=== PATIENT | male | born 1975 ===

== ENCOUNTER 2023-12-27 14:24 | Emergency (ER) | payer MEDICARE, SELFPAY ==
--- NOTE | ~2023-12-27 | CT_ITS ---
EXAMINATION: CT HEAD WITHOUT CONTRAST CLINICAL INFORMATION: Altered mental status. Headache. COMPARISON: None available. TECHNIQUE: Contiguous axial imaging was performed from the skull base to vertex without intravenous administration of contrast. This CT examination was performed using dose optimization techniques as appropriate, variously including the following: *Automated exposure control *Adjustment of mA and/or kV according to patient size (this includes techniques or standardized protocols for targeted exams where dose is matched to indication/reason for exam; i.e. extremities or head) *Use of iterative reconstruction technique DLP: 713 mGy-cm FINDINGS: The lateral, third and fourth ventricles are normally outlined. The cortical sulci and basal cisterns are normally outlined as well. There is no acute territorial defect, hemorrhage or midline shift. The extra-axial spaces are unremarkable. Calvarium/scalp: Intact. Maxillofacial sinuses and mastoids: Clear as visualized. CT/CT head/brain wo IV con IMPRESSION: No acute intracranial pathology.
--- NOTE | 2023-12-27 14:28 | ED_ITS ---
HPI - Psych General Chief Complaint: Psychiatric Symptoms Stated Complaint: seeing things talking to self crisis Time Seen by Provider: 12/27/23 15:36 Source: patient Mode of arrival: ambulatory Limitations: no limitations History of Present Illness ED Provider: TERESA ALAMO PA-C HPI Narrative: 48-year-old male with past medical history significant for developmental delay presents to the ED today with his cousin for evaluation of acute change in mental status. All information obtained per cousin. She reports that Sunday night, patient stopped taking p.o. intake. Around 3:00 a.m. the following morning he began to yell out his bedroom window stating that he had to leave and that people were outside waiting for him. There was no one outside. Was seen whispering to himself. He attempted to climb out the window. A day later he was found wandering the neighborhood lost. PD was called. Over the last few days he has not been very verbal per family. He has not made any statements of SI/HI. No known drug use. No history of similar. No personal psych history. Cousin reports familial psych history with unknown diagnosis. Related Data Previous Rx's ?Medication ?Instructions ?Recorded olanzapine 2.5 mg tablet (Zyprexa) 2.5 mg PO BEDTIME 30 days #30 tabs 12/31/23 olanzapine 2.5 mg tablet (Zyprexa) 2.5 mg PO Q6H PRN Hallucinations, 12/31/23 agitation 30 days #30 tabs Allergies Allergy/AdvReac Type Severity Reaction Status Date / Time No Known Allergies Allergy Verified 12/27/23 14:32 Review of Systems 2 Review of Systems: Constitutional: No fever, chills, fatigue, night sweats, weight changes ENT/Mouth: No ear pain, hearing loss, nasal congestion, sinus pain, rhinorrhea, sore throat Eyes: No eye pain, swelling, redness, vision changes, discharge Cardio: No chest pain, palpitations, BYNUM, orthopnea, peripheral edema Pulm: No SOB, cough, sputum, wheezing, dyspnea, hemoptysis GI: No nausea, vomiting, hematemesis, abdominal pain, diarrhea, constipation, hematochezia, melena : No irregular bleeding, dysuria, frequency, urgency, hesitancy, hematuria, flank pain, urinary flow changes, urinary incontinence or retention MSK: No back pain, neck pain, joint pain, myalgias Skin: No lesions, rashes Neuro: No weakness, numbness, paresthesias, LOC, dizziness, headache Psych: No anxiety/panic, depression, SI/HI, +auditory hallucinations, +visual hallucinations All other systems reviewed and are negative. COUNTS INCLUDE 234 BEDS AT THE [facility] Past Medical History Attestation statement: The following information was validated with the patient. Source: old records reviewed and nursing notes reviewed Social History Social History Smoked in Last 30 Days: No Use of substances other than those prescribed or required for medical reasons: No Advance Directives: No Advance Directives Information Provided: No Physical Exam 2 Vital Signs: Vital Signs: Last Vital Signs Temp 97.5 F 12/31/23 05:54 Pulse 76 12/31/23 05:54 Resp 16 12/31/23 05:54 BP 101/73 12/31/23 05:54 Pulse Ox 97 12/31/23 05:54 O2 Del Method Room Air 12/31/23 05:54 BMI result Body Mass Index 20.9 vital signs stable Const: General: cooperative, healthy appearing, comfortable and no acute distress HEENT: Head: Yes normal to inspection, Yes No palpable skull fracture present, Yes normocephalic and Yes atraumatic Eyes: Pupils: Equal, round and reactive pupils present Resp: Effort & Inspection: normal respiratory effort and able to speak in complete sentences Auscultation: clear to auscultation bilaterally Cardio: Rate: regular rate Rhythm: regular rhythm : General: Yes no CVA tenderness Back/Spine/Pelvis: Other: No midline spinous tenderness or step off deformity. No paraspinal muscle tenderness. Back: no CVA tenderness Skin: General skin exam: no rashes or lesions noted Neuro: General: gait normal, tone normal, moves all extremities and no focal motor deficits Cranial nerves: Yes CN's II-XII intact bilaterally and Yes Equal, round and reactive pupils present Gait exam (Neuro): Normal gait present Motor exam (neuro): 5/5 motor strength present throughout Psych: Appearance: grossly normal Attitude: Avoids eye contact (attititude/behavior) and Refuses to answer (attititude/behavior) Course Course Course Narrative: This is a Rapid Medical Examination (RME) performed by Kourtney Alamo PA-C in triage. Full HPI, ROS, assessment and treatment plan per primary provider in the Main ED. 48 yo male hx of developmental delay here w/ cousin for eval of acute change in mental status. reports sunday night patient stopped taking PO intake. around 0300 the following morning, began yelling out the window stating that he had to leave, that people were waiting for him outside. there was no one there. he tried climbing out the window. found wandering the neighborhood lost. PD was called. over the last few days has not been very verbal per family. has not made statements of SI/HI. no known drug use. no history of similar. no personal psych history. familial psych hx. + withdrawn. not answering questions. Plan: labs, UA/UDS, ct head Reevaluation(s) Reevaluation #1: 1750 -- Informed by RN patient unwilling to let staff get close to him in order to obtain blood work or CT scan. Continues to whisper to himself. Cousin and sister attempted to discuss need for work up with patient however still refusing. Will trial p.o. Zyprexa as labs/ imaging needed for medical clearance. 1849 -- patient's proj engineer now at bedside. Patient agreeable to p.o. Zyprexa. Will attempt to obtain blood work and CT scan after medication administration. 2046-- CBC without leukocytosis or left shift. No anemia. H&H stable. Chemistry without acute electrolyte abnormality requiring intervention. No ANTONIA. Normal liver function. Urine toxicology negative. Ethanol undetectable. HIV and syphilis pending. CT head/brain pending. > patient stable at the end of my shift. Sign-out given to Ramona COLLINS pending CT head/brain and care team consultation. Patient placed in physician observation at this time. Time: 00:09 Reevaluation #2: Received patient in sign out from ROB Driscoll. Patient initially refusing CT head, however, eventually agreed. CARE team requesting psych consult as patient has never been here, no records from [facility]. Time: 01:00 Reevaluation #3: No acute intracranial pathology on CT head. Patient pleased on physician observation at this time pending psych consult. Additional Reevaluation(s): Physician observation continued. Uneventful night. Vital signs stable. No complaints from nursing overnight. Med reconciliation reviewed and done. Pending disposition. Will continue to monitor. Pending psych consult 12/28/2023 at 21:40 hoursDr. Vincenzo Brennan note: Physician observation continued Patient was initially accepted at [facility] however [facility] canceled the acceptance since they were not told about the patient's developmental delay. Patient has been re-evaluated the care team and the patient is now a bed search againPatient will remain in the emergency department Behavioral Health Unit until disposition can be determined or until patient's symptoms improve over time. 12/29/23 708am. JAMESON Physician observation continued. VS stable, no acute events last night. continued bed search. I do no not see a psych consult yet in the chart. Bed search still underway. 12/30/23 724am JAMESON Physician observation continued. VS stable, no acute events overnight inpatient bed search S12. psych consult yesterday zyprexa 2.5mg dosing and PRN zyprexa. 12/31/2023 at 07:34 hours,Dr. Vincenzo Rojas'arvind note: Physician observation continued Patient was psychiatric consult on 12/29/2023 and was started on Zyprexa 2.5 mg at night and 2.5 mg b.i.d. p.r.n. 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 There were no reported incidents on the patient by the overnight nursing staff. The patient is in in-patient bed search.Patient will remain in the emergency department Behavioral Health Unit until disposition can be determined or until patient's symptoms improve over time. 12/31/2023 at 17:12 hours,Dr. Vincenzo Rojas'arvind note: End physician observation on 12/31/2023 at 17:12 hours 48 yo male hx of developmental delay who presents emergency department acute change in mental status. Patient did have a psychiatric consult and was started on Zyprexa. Patient was evaluated by the care team and it was felt that he did not require hospitalization and can be discharged home. Initially care team refer the patient to [facility] for follow-up however they do not accept his insurance and care team will try to refer the patient to [facility] for follow-up care. I prescribed Zyprexa 2.5 mg at night and Zyprexa 2.5 mg every 6 hours as needed for agitation. Observation care revealed the the patient does not meet medical necessity for hospitalization. Exam at time of disposition revealed the patient was awake, alert , oriented to person place, was not in any distress. ? Final disposition discussed with the patient and the patient's family who verbalized understanding and agreement. Patient started observation time on 12/27/2023 at 20:48 hours Patient completed observation care on 12/31/2023 at 17:12 hours Total time spent in observation care was 104 hours and 24 minutes https://www.calculator.net/quna-ciddumsu-iahpgmyewp.html Medications Administered Generic Name Dose Route Start Last Admin Trade Name Freq PRN Reason Stop Dose Admin Olanzapine 2.5 mg 12/29/23 21:00 12/30/23 20:17 Olanzapine 2.5 Mg Tablet PO 2.5 mg BEDTIME SHAHANA Administration Discontinued Medications Generic Name Dose Route Start Last Admin Trade Name Freq PRN Reason Stop Dose Admin Olanzapine 5 mg 12/27/23 18:00 12/27/23 18:41 Olanzapine 5 Mg Tablet PO 12/27/23 18:01 5 mg ONCE ONE Administration Olanzapine 5 mg 12/27/23 21:15 12/27/23 21:25 Olanzapine 5 Mg Tablet PO 12/27/23 21:16 5 mg ONCE ONE Administration Olanzapine 5 mg 12/29/23 09:45 12/29/23 09:54 Olanzapine 5 Mg Tablet PO 5 mg BID SHAHANA Administration Medical Decision Making Medical Decision Making [facility] Narrative: 48-year-old male with past medical history significant for developmental delay presents to the ED today with his cousin for evaluation of acute change in mental status. Vital signs stable. Afebrile. Patient withdrawn. Making eye contact however not willing to answer questions. PERRLA. RRR. Lungs CTA b/l. CN intact. Differential diagnosis includes new onset psychiatric illness, schizophrenia, bipolar disorder, polysubstance use. UA ordered to rule out urinary tract infection. Imaging ordered to rule out intracranial pathology. Plan for labs, UA/UDS, CT head/brain. Differential Diagnosis Differential Diagnoses: The differential diagnosis associated with the presentation includes As above Admission/Observation Consideration of admission/observation: Escalation of care including admission/observation considered Lab Data [facility] Lab Attestation statement: I reviewed the patient's lab results. As above 12/27/23 19:24 12/27/23 19:24 Labs: Lab Results 12/27/23 12/27/23 Range/Units 14:59 19:24 WBC 9.3 (4.8-10.8) X10*3/uL RBC 4.65 (4.60-5.80) X10*6/uL Hgb 14.9 (14.0-18.0) g/dl Hct 42.3 (42.0-52.0) % MCV 91.0 (80.0-98.0) fL MCH 32.0 (27.0-33.0) pg MCHC 35.2 (31.0-36.0) g/dl RDW 13.3 (11.0-16.0) % Plt Count 228 (160-400) X10*3/uL MPV 9.9 (9.4-12.4) fL Immature Gran % (Auto) 0.3 (0.0-0.4) % Neut % (Auto) 69.1 (45-73) % Lymph % (Auto) 22.0 (20-40) % [place] % (Auto) 7.5 (2-11) % Eos % (Auto) 0.5 (0-4) % Baso % (Auto) 0.6 (0-2) % Lymph # (Auto) 2.1 (1.2-4.9) X10*3/uL [place] # (Auto) 0.7 (0.1-1.2) X10*3/uL Eos # (Auto) 0.1 (0.0-0.4) X10*3/uL Baso # (Auto) 0.1 (0.0-0.2) X10*3/uL Abs Immat Gran (auto) 0.03 (0.00-0.03) X10*3/uL Absolute Neuts (auto) 6.4 (2.0-8.3) x10*3/uL Absolute Nucleated RBC 0.000 (0.0-0.012) X10*3/uL Nucleated RBC % (auto) 0.0 (0.0-0.2) /100WBC Sodium 143 (135-145) mmol/L Potassium 4.0 (3.3-5.1) mmol/L Chloride 107 (96-108) mmol/L Carbon Dioxide 27 (22-29) mmol/L Anion Gap 13 (12-20) BUN 15 (9-16) mg/dL Creatinine 0.95 (0.5-1.4) mg/dL Estim Creat Clear Calc 84.9 Estimated GFR > 60 Random Glucose 131 H (60-115) mg/dL Calcium 9.8 (8.4-10.2) mg/dL Magnesium 2.3 (1.6-2.6) mg/dL Total Bilirubin 0.3 (0.0-1.0) mg/dL AST 13 (5-37) U/L ALT 19 (0-40) U/L Alkaline Phosphatase 74 (39-117) U/L Total Protein 7.9 (6.5-8.0) g/dL Albumin 4.3 (3.5-5.0) g/dL TSH 0.88 (0.32-4.0) uIU/mL Urine Color Yellow Urine Appearance Cloudy Urine pH 7.5 (5.0-9.0) Ur Specific [place] 1.025 (1.005-1.025) Urine Protein 30 (1+) H (Neg-Trace) mg/dL Urine Glucose (UA) Negative (Negative) mg/dL Urine Ketones Negative (Negative) mg/dL Urine Blood Negative (Negative) Urine Nitrite Negative (Negative) Ur Leukocyte Esterase Negative (Negative) Urine RBC 0-2 (0-2) /HPF Urine WBC 0-5 (0-5) /HPF Ur Squamous Epith Cells 3-5 (0-2) /HPF Urine Bacteria None Seen (None Seen) Hyaline Casts 0-2 (0-2) /LPF Urine Opiates Screen Not Detected (Not Detect) Ur Buprenorphine Scrn Not Detected (Not Detect) ng/mL Ur Oxycodone Screen Not Detected (Not Detect) ng/mL Urine Methadone Screen Not Detected (Not Detect) ng/mL Urine Fentanyl Screen Not Detected (Not Detect) Ur Barbiturates Screen Not Detected (Not Detect) Ur Phencyclidine Scrn Not Detected (Not Detect) Ur Amphetamines Screen Not Detected (Not Detect) U Benzodiazepines Scrn Not Detected (Not Detect) Urine Cocaine Screen Not Detected (Not Detect) U Marijuana (THC) Screen Not Detected (Not Detect) Ethyl Alcohol < 10 mg/dL T.pallidum Ab (EIA) Nonreactive (Nonreactive) HIV 1&2 Ab/P24 Ag 4thGn Nonreactive (Nonreactive) Critical Care Time Critical Care Time Critical Care Time: No Discharge Plan Discharge Clinical Impression: Hallucinations, visual Patient Disposition: Home, Self-Care Additional Instructions: Please follow the care team instructions You were seen by our psychiatrist and they want to start you on the following medications Zyprexa (olanzapine) 2.5 mg pills, at night Zyprexa (olanzapine) 2.5 mg every 6 hours as needed for agitation or hallucinations. Follow-up with your doctor in 2 days. Please return to the emergency department if your symptoms get worse or if you develop any symptoms that are concerning to you. Prescriptions: New olanzapine [Zyprexa] 2.5 mg tablet 2.5 mg PO Q6H PRN (Reason: Hallucinations, agitation) 30 Days Qty: 30 0RF olanzapine [Zyprexa] 2.5 mg tablet 2.5 mg PO BEDTIME 30 Days Qty: 30 0RF Interventions: Shannon-Suicide Risk Severity Scale Last Done: 12/31/23 17:04 Print Language: Hungarian
[2023-12-27 14:29] VITALS: BP 113/78; PULSE 86; RESP 16; TEMP 36.6; O2SAT 100; BMI 20.9
[2023-12-27 15:08] LABS: Appearance Urine Cloudy; Color Urine Yellow; Glucose Urine UA Negative (Negative); Leukocyte Esterase Urine Negative (Negative); Nitrite Urine Negative (Negative); PH 7.5 (5.0-9.0); Specific Gravity - Urine 1.025 (1.005-1.025); UMIC TRIGGER UACC YES; Urine Blood Negative (Negative); Urine Ketones Negative (Negative); Urine Protein 30 (1+) mg/dL (Neg-Trace)
[2023-12-27 15:11] LABS: Bacteria Urine None Seen (None Seen); Hyaline Casts Urine 0-2 /LPF (0-2); RBC Urine 0-2 /HPF (0-2); WBC Urine 0-5 /HPF (0-5)
[2023-12-27 15:24] LABS: Amphetamine Screen Urine Not Detected (Not Detect); Barbiturates, Urine Not Detected (Not Detect); Benzodiazepines Screen Urine Not Detected (Not Detect); Buprenorphine Scr Not Detected (Not Detect); Cannabinoid Screen Urine Not Detected (Not Detect); Cocaine Screen Urine Not Detected (Not Detect); Fentanyl, urine Not Detected (Not Detect); Methadone Screen, Urine Not Detected (Not Detect); Opiate Screen Urine Not Detected (Not Detect); Oxycodone Screen Urine Not Detected (Not Detect); Phencyclidine Screen Urine Not Detected (Not Detect)
--- OUTSIDE RECORDS SUMMARY | 2023-12-27 16:15 | XMS_ITS ---
Author Organization Unknown ALLERGIES AND ADVERSE REACTIONS No information ASSESSMENT No information CHIEF COMPLAINT No information MEDICATIONS No information OBJECTIVE DATA No information PHYSICAL EXAMINATION No information TREATMENT PLAN Planned Care Start Date Provider Encounter for Check-up [id number] PROBLEMS No information RESULTS No information REVIEW OF SYSTEMS No information SUBJECTIVE DATA No information VITAL SIGNS No information
--- NOTE | 2023-12-27 16:23 | PC.NURSE ---
Pt presents to ED via family. Family/ caregivers report since Sunday he has been nonverbal, not eating and not acting himself. Has mental delays per family, at baseline talks but has trouble communicating normally. Family reports he has been wandering, responding to external stimuli, not talking to family and not acting himself. Per family, pt does not use drugs/alcohol, no recent falls/ head hit, or recent illnesses. Denies pt ever making statements about SI/HI. Pt has no psych hx or meds per family.
--- NOTE | 2023-12-27 16:24 | MHC.EDTECH ---
at this time this tech attempted to draw the pt's blood for blood work and the pt refused.
--- NOTE | 2023-12-27 16:26 | PC.NURSE ---
Pt is alert, not responding to RN or family, noted to be responding to internal stimuli. Says one or two words, no sentences. Breathing even and unlabored, skin warm and dry. Pt refusing CT scan or labs at this time.
[2023-12-27 16:57] VITALS: BP 124/86; PULSE 94; RESP 20; TEMP 36.4; O2SAT 98
[2023-12-27] MEDS: OLANZapine 5 MG TABLET PO ×2 (18:41→21:25)
--- NOTE | 2023-12-27 18:42 | PC.NURSE ---
Caregiver at bedside, agrees that pt will need medication for blood work/ testing. Pt takes PO med per MAR with caregiver at bedside, able to talk to him. Will attempt soon for testing.
[2023-12-27 19:30] LABS: MANUAL DIFF FLAG NO
[2023-12-27 19:31] LABS: Basophils Absolute Auto 0.1 X10*3/uL (0.0-0.2); Basophils Percent Auto 0.6 % (0-2); Eosinophils Absolute Auto 0.1 X10*3/uL (0.0-0.4); Eosinophils Percent Auto 0.5 % (0-4); Hematocrit 42.3 % (42.0-52.0); Hemoglobin 14.9 g/dl (14.0-18.0); Imm Gran Abs Auto 0.03 X10*3/uL (0.00-0.03); Imm Gran Pct Auto 0.3 % (0.0-0.4); Lymphocytes Absolute Auto 2.1 X10*3/uL (1.2-4.9); Mean Corpuscular HGB Conc 35.2 g/dl (31.0-36.0); Mean Platelet Volume 9.9 fL (9.4-12.4); Monocytes Absolute Auto 0.7 X10*3/uL (0.1-1.2); Monocytes Percent Auto 7.5 % (2-11); Neutrophils Absolute Auto 6.4 x10*3/uL (2.0-8.3); Neutrophils Percent Auto 69.1 % (45-73); Platelet Count 228 X10*3/uL (160-400); Red Blood Count 4.65 X10*6/uL (4.60-5.80); Red Cell Distribution Width 13.3 % (11.0-16.0); White Blood Count 9.3 X10*3/uL (4.8-10.8)
[2023-12-27 19:50] LABS: Ethanol < 10 mg/dL
[2023-12-27 19:51] LABS: Alanine Aminotransferase 19 U/L (0-40); Albumin Level 4.3 g/dL (3.5-5.0); Alkaline Phosphatase 74 U/L (39-117); Anion Gap 13 (12-20); Aspartate Amino Transferase 13 U/L (5-37); Bilirubin Total 0.3 mg/dL (0.0-1.0); Blood Urea Nitrogen 15 mg/dL (9-16); Calcium 9.8 mg/dL (8.4-10.2); Carbon Dioxide 27 mmol/L (22-29); Chloride 107 mmol/L (96-108); Creatinine Clr Calc Pharmacy 84.9; Estimated Glomerular Filt Rate > 60; Glucose Random 131 mg/dL (60-115); Magnesium 2.3 mg/dL (1.6-2.6); Sodium 143 mmol/L (135-145); Total Protein 7.9 g/dL (6.5-8.0)
--- NOTE | 2023-12-27 21:15 | MHC.EDTECH ---
at this time the pt came out of his room and began testing doors, continues to say Dame selma miller . Both techarvind and RN attempted to redirect pt back to room and explain that he will receive his clothes tomorrow upon D/C. He continues to stand by the nurses station attempting to retrieve his personal belongings in order to leave.
[2023-12-27 23:03] LABS: Thyroid Stimulating Hormone 0.88 uIU/mL (0.32-4.0)
--- NOTE | 2023-12-28 | ECG_ITS ---
Test Reason : CHECKQTC Blood Pressure : / mmHG Vent. Rate : 084 BPM Atrial Rate : 084 BPM P-R Int : 106 ms QRS Dur : 082 ms QT Int : 334 ms P-R-T Axes : -11 148 147 degrees QTc Int : 394 ms Sinus rhythm with short PA Left posterior fascicular block Nonspecific ST and T wave abnormality Abnormal ECG No previous ECGs available Referred By: Elijah Islas Electronically Signed By:VIANNEY AREVALO MD
[2023-12-28 06:21] VITALS: BP 125/86; PULSE 101; RESP 19; TEMP 36.7; O2SAT 98
[2023-12-28 08:38] LABS: HIV AB/AG Nonreactive (Nonreactive); HIV Num 1 0.05 S/CO (0.00-0.99)
[2023-12-28 08:58] LABS: Syphilis Screen Nonreactive (Nonreactive)
[2023-12-28 14:00] VITALS: BP 99/66; PULSE 76; RESP 17; TEMP 37.1; O2SAT 96
--- NOTE | 2023-12-28 16:52 | MHC.CARE ---
T/W spoke with Admissions- [facility] however needs a Nursing Note / report from nurse with accepting info. Admissions is requesting this information be added to the pt's chart. Admissions is leaving at 5PM today so wanted to relay the message. T/W will let Nursing know.
--- NOTE | 2023-12-28 17:12 | MHC.CARE ---
Pt was accepted [facility] today 12/28/23 ETA [facility]. Pt has to arrive before 7pm because their accepting doc will be gone by the. The accepting provider is Dr. Maren Muir. Pod RN was notified of acceptance. CARE team was notified of acceptance. Pod RN will set up transport [facility]. The address [address] [place] [id number]. Nurse still has to conduct report for pt.
--- NOTE | 2023-12-28 19:09 | MHC.CARE ---
POD RN reports that [facility] cancelled transport for Pt during [id number] report as they were not told that Pt had a developmental disability.
--- NOTE | 2023-12-28 23:29 | PC.NURSE ---
resting queitly with eyes closed, resp with ease, will cont plan of care
[2023-12-29 06:17] VITALS: BP 110/67; PULSE 67; RESP 16; TEMP 37.1; O2SAT 97
[2023-12-29] MEDS: OLANZapine 5 MG TABLET PO (09:54)
--- NOTE | 2023-12-29 14:14 | P.CNPS_ITS ---
History of Present Illness Date of Service: t Chief Complaint: seeing things talking to self crisis Reason for Consult: Medication management HPI Narrative: The patient is a 48-year-old [place] male, Gabonese-speaking, with developmental disorders living with his family referred to the emergency room due to exacerbation of psychotic symptoms elicited by disorganized behavior, talking to himself on agitation. Apparently, the patient is under the care of his family and recently he had been more disorganized. The present consult was asked for medication management due to the psychotic symptoms. When I approached to the patient the patient has yes received an hour ago Zyprexa 5 mg and he was profoundly sedated. According to the crisis note and home meds, he has never received antipsychotics. I was unable to assess his full mental status exam due to the over-sedation. Past Psychiatric History: Unknown Medical Evaluation Reviewed: Yes Review of Systems Review of Systems Yes Unobtainable due to mental status PMFSH Family History: Unknown Social History: The patient is severely impaired, there guardianship papers from [place] he is taking care by his family. Substance History: No substance abuse history Trauma History: No trauma history Diagnostics Vital Signs (24Hr): Vital Signs - 24 hr 12/29/23 06:17 Temperature 98.7 F Pulse Rate 67 Respiratory Rate 16 Blood Pressure 110/67 Pulse Oximetry 97 Oxygen Delivery Method Room Air BMI result Body Mass Index 20.9 Labs 12/27/23 19:24 12/27/23 19:24 Labs: Laboratory Results - last 48 hr 12/27/23 12/27/23 14:59 19:24 WBC 9.3 RBC 4.65 Hgb 14.9 Hct 42.3 MCV 91.0 MCH 32.0 MCHC 35.2 RDW 13.3 Plt Count 228 MPV 9.9 Immature Gran % (Auto) 0.3 Neut % (Auto) 69.1 Lymph % (Auto) 22.0 [place] % (Auto) 7.5 Eos % (Auto) 0.5 Baso % (Auto) 0.6 Lymph # (Auto) 2.1 [place] # (Auto) 0.7 Eos # (Auto) 0.1 Baso # (Auto) 0.1 Abs Immat Gran (auto) 0.03 Absolute Neuts (auto) 6.4 Absolute Nucleated RBC 0.000 Nucleated RBC % (auto) 0.0 Sodium 143 Potassium 4.0 Chloride 107 Carbon Dioxide 27 Anion Gap 13 BUN 15 Creatinine 0.95 Estim Creat Clear Calc 84.9 Estimated GFR > 60 Random Glucose 131 H Calcium 9.8 Magnesium 2.3 Total Bilirubin 0.3 AST 13 ALT 19 Alkaline Phosphatase 74 Total Protein 7.9 Albumin 4.3 TSH 0.88 Urine Color Yellow Urine Appearance Cloudy Urine pH 7.5 Ur Specific [place] 1.025 Urine Protein 30 (1+) H Urine Glucose (UA) Negative Urine Ketones Negative Urine Blood Negative Urine Nitrite Negative Ur Leukocyte Esterase Negative Urine RBC 0-2 Urine WBC 0-5 Ur Squamous Epith Cells 3-5 Urine Bacteria None Seen Hyaline Casts 0-2 Urine Opiates Screen Not Detected Ur Buprenorphine Scrn Not Detected Ur Oxycodone Screen Not Detected Urine Methadone Screen Not Detected Urine Fentanyl Screen Not Detected Ur Barbiturates Screen Not Detected Ur Phencyclidine Scrn Not Detected Ur Amphetamines Screen Not Detected U Benzodiazepines Scrn Not Detected Urine Cocaine Screen Not Detected U Marijuana (THC) Screen Not Detected Ethyl Alcohol < 10 T.pallidum Ab (EIA) Nonreactive HIV 1&2 Ab/P24 Ag 4thGn Nonreactive Imaging Radiology Impressions: ITS Impressions Head CT 12/27/23 23:37 IMPRESSION: No acute intracranial pathology. Mental Status Exam Mental Status Exam Patient Appearance: Appropriate Patient Orientation: Person Level of Consciousness: Sedated Patient Behavior: Asleep Mood Description: Withdrawn Affect Description: Withdrawn Patient Cognition Impaired: Yes Ability to Follow Directions: Poor Speech Pattern: No Speech Hallucinations: None Delusions: Ideas of Reference Thought Process: Slowed Thinking Thought Content: positive for Thought Blocking Judgement: Poor Medications Medications Current Medications Olanzapine (Olanzapine 5 Mg Tablet) 5 mg PO BID SHAHANA Last Admin: 12/29/23 09:54 Dose: 5 mg Allergies Allergies Allergy/AdvReac Type Severity Reaction Status Date / Time No Known Allergies Allergy Verified 12/27/23 14:32 Assessment & Plan Assessment & Plan (1) Psychosis: Status: Acute Code(s): F29 - Unspecified psychosis not due to a substance or known physiological condition (2) Cognitive impairment: Status: Acute Code(s): R41.89 - Other symptoms and signs involving cognitive functions and awareness Plan The patient is an adult [place] male with a past history of cognitive impairment, taking care by his family who was brought to the facility for psychotic symptoms. Apparently the patient has never received antipsychotics and the present consult was asked to discuss medication management. At the moment of the assessment the patient was severely sedated, the patient is completing knife to antipsychotics and 5 mg of Zyprexa twice a day could be excessive at this point. Plan 1. Gather collateral information we need to find out medication trials in the past. 2. Discontinue Zyprexa 5 mg p.o. b.i.d.. 3. Zyprexa 2.5 p.o. q.6 hours p.r.n. hallucinations/psychosis. 4. Lower Zyprexa at night 2.5 mg p.o. q.h.s.. 5. Reassessment as demand Total time managing care of this patient today _30___ minutes. Informed Consent: does not understand
--- NOTE | 2023-12-29 15:19 | MHC.CARE ---
RAD team conducted an adult inpatient bedsearch for this individual. His referral was faxed to [facility], [facility], [facility], [facility] and [facility]. All other adult facilities had no open beds. The bed search it is now exhausted. Bed search will be continued tomorrow if deemed appropriate.
--- NOTE | 2023-12-29 15:49 | MHC.CARE ---
Pt seen by hospital psychiatry for consultation. Unable to engage due to over sedation. Psychiatry changed current medication orders to reduce the over sedating effects.
--- NOTE | 2023-12-29 16:04 | PC.NURSE ---
spoke w family via in-person chief technologist at length, family expressed concern that pt is decompensation and not participating in ADLs, and has not been showering or brushing teeth. family has been trying to bring food to pt d/t pt not eating sandwiches and eggs that are often served to pt and there has been inconsistencies w food allowed back to pt. advised that family bring store bought and packaged food to avoid confusion w staff. kitchen called to request that pt be brought rice, beans and chicken for meals if available d/t pt eating similar type meals when admitted. family also frustrated that pt is only allowed one visitor at a time today when they have had two visitors in the past - explain that visitors can be limited at nurse discretion d/t the needs of staff and other pts in area. family verbalized understanding of above.
--- NOTE | 2023-12-29 16:49 | MHC.EDTECH ---
Family member brought in food for patient from the caf, sandwich, chips, drinks.
--- NOTE | 2023-12-29 17:12 | PC.NURSE ---
Patient at a [employer] [facility] sandwich, Lays potato chips, and pineapple juice drink for dinner, provided by food purchased at [facility] by his [id number]. Items were in sealed containers. Pt is now taking a shower and brushing his teeth. Shampoo, toothbrush, and toothpaste provided by [facility]. Shampoo liquid placed in paper cup, per [facility] policy. Changed into [facility] attire without issue. Pt ambulates with steady gait. Linens also changed. Pt returned to bed while this RN was writing this note and is currently resting and watching TV. Unopened banana and unopened ritz cracker snack pack remains on patient's bedside table at this time. Care ongoing by this RN and ED rn psychiatric.
--- NOTE | 2023-12-29 19:30 | PC.NURSE ---
patient appears to remain at rest at present respirations are even and unlabored patient appears in no distress.
[2023-12-29] MEDS: OLANZapine 2.5 MG TABLET PO (19:46)
[2023-12-29 20:22] VITALS: BP 122/85; PULSE 95; RESP 18; TEMP 36.8; O2SAT 98
[2023-12-30 04:58] VITALS: BP 116/80; PULSE 77; RESP 16; TEMP 36.6; O2SAT 98
[2023-12-30 07:32] VITALS: RESP 16
--- NOTE | 2023-12-30 07:37 | PC.NURSE ---
Assumed care of patient at 0645, patient appears to be sleeping, no apparent distress noted. Continue plan of care for inpatient bedsearch
--- NOTE | 2023-12-30 09:55 | PC.NURSE ---
patient requiring some prompting but ate a few bites of breakfast, patient declined needing to use the bathroom
[2023-12-30 15:49] VITALS: RESP 16
[2023-12-30 15:56] VITALS: BP 118/81; PULSE 84; RESP 18; TEMP 36.9; O2SAT 97
--- NOTE | 2023-12-30 19:38 | PC.NURSE ---
patient appears to remain at rest presently respirations are even and unlabored patient appears in no distress.
[2023-12-30] MEDS: OLANZapine 2.5 MG TABLET PO (20:17)
[2023-12-31 05:54] VITALS: BP 101/73; PULSE 76; RESP 16; TEMP 36.4; O2SAT 97
--- NOTE | 2023-12-31 07:50 | PC.NURSE ---
Assumed care of patient at 0645, patient sitting upright in bed watching TV at this time, smiling and non-verbally communicating with this RN. Pt shakes his head no when asked if anything is bothering him or if he is in any pain. Continue plan of care for inpatient bedsearch at this time
[2023-12-31 17:36] VITALS: BP 134/93; PULSE 106; RESP 16; TEMP 36.7; O2SAT 97
--- NOTE | 2024-01-01 09:39 | MHC.CARE ---
Addendum entered by Mary Romeo MA 01/01/24 09:42: [facility] [phone] Original Note: Clinician called [facility] to obtain medication prescriber appointment, spoke with Mary who took demographic information and reports she will reach out to patients sister/guardian to scheduled medication appointment.
== END 2023-12-31 17:44 | disposition home or self-care (01) ==
PROVIDERS: Emergency Medicine; Physician Assistant Medical; Emergency Provider Emergency Medicine Emergency Medical Services; PCP Internal Medicine
DX: R44.1 Visual hallucinations (principal); F29 Unspecified psychosis not due to a substance or known physiological condition; R41.82 Altered mental status, unspecified; Z91.148 Patient's other noncompliance with medication regimen for other reason
CPT/HCPCS: 36415; 70450; 80053; 80307; 81001; 83735; 84443; 85025; 86780; 87389; 93005; 99285; S9485

== ENCOUNTER → 2023-12-27 16:08 | Outpatient (BNV) | payer OTHER, SELFPAY | PROVIDERS: Emergency Provider Emergency Medicine; PCP Internal Medicine; Visit Provider Psychiatry & Neurology Psychiatry | DX: F29 Unspecified psychosis not due to a substance or known physiological condition (principal); R41.89 Other symptoms and signs involving cognitive functions and awareness | CPT/HCPCS: 99284 ==

== ENCOUNTER → 2023-12-28 12:47 | Outpatient (BNV) | payer MEDICARE, SELFPAY | PROVIDERS: Emergency Provider Emergency Medicine; PCP Internal Medicine; Visit Provider Internal Medicine Cardiovascular Disease | DX: R94.31 Abnormal electrocardiogram [ECG] [EKG] (principal) | CPT/HCPCS: 93010 ==

== ENCOUNTER 2024-05-27 13:38 | Outpatient (REF) | payer MEDICARE, SELFPAY ==
[2024-05-27 16:05] LABS: MANUAL DIFF FLAG NO
[2024-05-27 16:21] LABS: Basophils Percent Auto 0.4 % (0-2); Eosinophils Percent Auto 0.5 % (0-4); Hematocrit 44.8 % (42.0-52.0); Hemoglobin 15.4 g/dl (14.0-18.0); Imm Gran Abs Auto 0.03 X10*3/uL (0.00-0.03); Imm Gran Pct Auto 0.4 % (0.0-0.4); Lymphocytes Absolute Auto 1.6 X10*3/uL (1.2-4.9); Lymphocytes Percent Auto 21.8 % (20-40); Mean Corpuscular HGB Conc 34.4 g/dl (31.0-36.0); Mean Corpuscular Volume 90.3 fL (80.0-98.0); Mean Platelet Volume 10.5 fL (9.4-12.4); Monocytes Absolute Auto 0.5 X10*3/uL (0.1-1.2); Monocytes Percent Auto 6.8 % (2-11); Neutrophils Absolute Auto 5.1 x10*3/uL (2.0-8.3); Neutrophils Percent Auto 70.1 % (45-73); Platelet Count 206 X10*3/uL (160-400); Red Blood Count 4.96 X10*6/uL (4.60-5.80); Red Cell Distribution Width 13.2 % (11.0-16.0); White Blood Count 7.3 X10*3/uL (4.8-10.8)
[2024-05-27 16:29] LABS: Estimated Average Glucose 105 mg/dL; Hemoglobin A1C 136.4001 umol/L; Hemoglobin A1c % 5.3 % (<6.0)
[2024-05-27 17:06] LABS: Alanine Aminotransferase 25 U/L (0-40); Albumin Level 4.3 g/dL (3.5-5.0); Anion Gap 12 (12-20); Aspartate Amino Transferase 27 U/L (5-37); Bilirubin Total 0.5 mg/dL (0.0-1.0); Blood Urea Nitrogen 17 mg/dL (9-16); Calcium 9.8 mg/dL (8.4-10.2); Carbon Dioxide 27 mmol/L (22-29); Chloride 105 mmol/L (96-108); Cholesterol 185 mg/dL (<200); Estimated Glomerular Filt Rate > 60; Glucose Random 121 mg/dL (60-115); HDL Cholesterol 42 mg/dL (>40); LDL Cholesterol Calculated 124 mg/dL (<100); Sodium 140 mmol/L (135-145); Total Protein 8.1 g/dL (6.5-8.0); Triglycerides 99 mg/dL (<150)
[2024-05-27 17:22] LABS: Alkaline Phosphatase 88 U/L (39-117)
[2024-05-27 17:31] LABS: TSH reflex Free T4 1.14 uIU/mL (0.32-4.0)
[2024-05-28 09:28] LABS: HIV AB/AG Nonreactive (Nonreactive); HIV Num 1 0.04 S/CO (0.00-0.99); ~HepC Num1 0.05 S/CO (0.00-0.79); ~Hepatitis C Antibody Nonreactive (Nonreactive)
== END 2024-05-27 13:39 | disposition home or self-care (01) ==
LOC: HO.HHCL 13:38
PROVIDERS: Visit Provider Internal Medicine
DX: F29 Unspecified psychosis not due to a substance or known physiological condition (principal); Z13.1 Encounter for screening for diabetes mellitus
CPT/HCPCS: 36415; 80053; 80061; 82306; 83036; 84443; 85025; 86803; 87389

== ENCOUNTER 2024-07-03 12:18 | Outpatient (REF) | payer MEDICARE, SELFPAY ==
--- OUTSIDE RECORDS SUMMARY | 2024-07-03 12:31 | XMS_ITS | Clinical Summary ---
Author Organization [employer] Address [address] [facility] 7[address] [place] [address] Care Team Providers Care Classifier Name Role Phone Veronica Avendano MD Primary Care Provide r Allergies No known active allergies Medications * This document contains information received from the source organization and may not represent a complete record from that organization. famotidine (Pepcid) 20 MG tabletIndication s:Gastroesophage al reflux disease, unspecified whether esophagitis present Take 1 tablet (20 mg) by mouth 2 times daily. 60 tablet 11 3 Active cholecalciferol (Vitamin D-3) 25 MCG (1000 UT) tabletIndication s:Low vitamin D level Take 1 tablet (25 mcg) by mouth Once per day. 60 tablet 1 5 Active OLANZapine (ZyPREXA) 2.5 MG tabletIndication s:Psychosis, unspecified psychosis type (CMS/HCC) Take 1 tablet (2.5 mg) by mouth every 6 (six) hours if needed (hallucination s and agitation). 40 tablet 1 5 Active OLANZapine (ZyPREXA) 2.5 MG tabletIndication s:Psychosis, unspecified psychosis type (CMS/HCC) Take 1 tablet (2.5 mg) by mouth at bedtime. 90 tablet 5 Active ketoconazole (NIZOral) 2 % shampooIndicatio ns:Seborrheic dermatitis Apply topically 2 (two) times a week. 120 mL 2 5 Active triamcinolone (Kenalog) 0.1 % creamIndications :Seborrheic dermatitis Apply topically if needed in the morning and at bedtime (pain and swelling). 30 g 2 5 Active Active Problems Problem Noted Date Diagnosed Date Seborrheic dermatitis 05/30/2024 Diminished vision 03/04/2024 Psychosis 01/07/2024 Assessment & Plan (01/07/2024 1:54 PM EDT): Continue with current medication regimen, patient will go with caregiver to pharmacy with insurance cards to see if he can had medication cover Follow up with psychiatrist Poor dentition 01/07/2024 Assessment & Plan (05/30/2024 4:09 PM EST): Patient is waiting for an appointment Assessment & Plan (01/07/2024 1:55 PM EDT): It was notice during visit poor dentation I gave caregiver information about dental offices accepting medicare, he needs to be evaluated Brief psychotic disorder 01/07/2024 Encounter for preventive health examination 02/18 Assessment & Plan (03/01/2023 4:28 PM EDT): See HPI Difficulty in urination 01/09/2023 Assessment & Plan (01/09/2023 1:51 PM EDT): PSA ordered today after results possible referral to urology [facility] care maintenance 01/09/2023 Colon cancer screening 01/09/2023 Assessment & Plan (03/04/2024 3:00 PM EDT): Cologuard ordered previously Intellectual disability 01/08/2023 Assessment & Plan (01/09/2023 1:50 PM EDT): Neuropsychiatric evaluation already done Patient to be evaluated for SSI Gastroesophageal reflux disease 01/08/2023 Assessment & Plan (03/01/2023 4:28 PM EDT): I advise patient to avoid NSAIDs, spicy and acid food, I advise to eat at the same time every day, I advise to elevate the head of the bed and take medications as prescribe Assessment & Plan (01/09/2023 1:49 PM EDT): I advise patient to avoid NSAIDs, spicy and acid food, I advise to eat at the same time every day, I advise to elevate the head of the bed and take medications as prescribe Resolved Problems Problem Noted Date Diagnosed Date Resolved Date Primary hypertension 03/01/2023 023 Type 2 diabetes mellitus wit hout complication, without long-term current use of insulin 03/01/2023 03/01/2023 Encounters * This document contains information received from the source organization and may not represent a complete record from that organization. Date Type Department Care Team Description 05/30/2024 1:45 PM EST Office Visit [facility] MEDICINE [address] [place] [address] Veronica Avendano MD Psychosis, unspecified psychosis type (CMS/HCC) (Primary Dx); Seborrheic dermatitis; Poor dentition; Intellectual disability 05/30/2024 Travel 05/30/2024 Orders Only [address] [address] Veronica Avendano MD Low vitamin D level (Primary Dx) 05/20/2024 Telephone [facility] [address] [place] [address] Veronica Avendano MD Guardianship Forms (I spoke with Katarina, regarding a Clinical Team Report, from the [facility]. She stated that the form that she turned in to the court in January 2024, was not accepted because she turned it in after the 30 day time frame. She was given new forms, and needs to turn them in before 06/15/24. I informed her that the patient needs to be seen by his PCP, before the forms are completed. She asked for a staff member to call her with an appointment as soon as possible.) from Last 3 Months Immunizations Name Administration Dates Next Due Influenza injectable quadrivalent preservative f ree 03/01/2023,02/16/2022 Influenza, seasonal, injectable, preservative fr ee 03/04/2024 TD (adult), 2 Lf tetanus tox oid, preservative free, adsorbed 02/16/2022 Social History Tobacco Use Types Packs/Day Years Used Date Smoking Tobacco: Never Passive Smoke Exposure: Never Smokeless Tobacco: Never Tobacco Cessation:Counseling Given: Not Answered Alcohol Use Standard Drinks/Week Comments Never 0 (1 standard drink = 0.6 oz pur e alcohol) Depression Answer Date Recorded Patient Health Questionnaire-9 Score 0 03/04/2024 Patient Health Questionnaire-9 Score 0 03/04/2024 Last PHQ-9: Questionnaire Data Not on file 1 Housing Stability Answer Date Recorded What is your housing situation today? I have meka sears 03/26/[address] you li ve. Do you have problems with any of the following? None of the above 03/26/2023 Food Insecurity Answer Date Recorded Within the past 12 months, y ou worried that your food would run out before you got money to buy more: Never True 03/26/2023 Within the past 12 months,th e food you bought just didn't last and you didn't have enough money to get more: Never True 10/2022 Transportation Answer Date Recorded In the past 12 months, has l ack of transportation kept you from medical appts, meetings, work or from getting things needed for daily living? No 03/26/2023 Utilities Answer Date Recorded In the past 12 months, has t he electric, gas, oil or water company threatened to shut off services in your home? No 03/26/2023 Depression Answer Date Recorded Patient Health Questionnaire-2 Score 0 03/04/2024 Internet Access Answer Date Recorded Internet Access Q1 Yes 02/25/2024 Internet Access Q2 Not on file 02/25/2024 Sex and Gender Information Value Date Recorded Sex Assigned at Male 03/20/2022 10:39 AM EDT Legal Sex Male 10:39 AM EDT Gender Identity Choose not to disclose 10:39 AM EDT Sexual Orientation Choose not to disclose 2021 10:39 AM EDT Last Filed Vital Signs Vital Sign Reading Time Taken Comments Blood Pressure 110/78 05/30/2024 1:31 PM EST Pulse 68 05/30/2024 1:31 PM EST Temperature 36 ??C (96.8 ??F) 05/30/2024 1:31 PM EST Respiratory Rate 17 05/30/2024 1:31 PM EST Oxygen Saturation 97% 03/04/2024 2:24 PM EDT Inhaled Oxygen Concentration - - Weight 68.7 kg (151 lb 8 oz) 05/30/2024 1:31 PM EST Height 172.7 cm (5' 8 ) 05/30/2024 1:31 PM EST Body Mass Index 23.04 05/30/2024 1:31 PM EST Plan of Treatment Upcoming Encounters Date Type Department Care Team (Late st Contact Info) Description 07/31/2024 1:45 PM EDT Office Visit [facility] OPTOMETRY [address] [place] [address] Mattjulisu Alka, OD [address] [place] [address] Health Maintenance Due Date Last Done Comments CT Colonography 1976 Colonoscopy 1976 Colorectal Cancer Screening 1976 Dental Prophylaxis 1976 Dental X-Ray: Bitewings 1976 FIT DNA/Cologuard 1976 FIT 1976 FOBT 1976 Sigmoidoscopy 1976 Alcohol/Substance Use Screening 1988 Family Planning (PISQ) 11/27/1991 Hepatitis B Vaccines (1 of 3 - 19+ 3-dose series) 11/27/1995 Dental Oral Exam 10/06/2021 04/07/2021 DTaP/Tdap/Td Vaccines (1 - Tdap) 02/17/2022 02/16/2022 COVID-19 Vaccine (3 - 2023-2 5 season) 2024 02/25/2021, 02/04/2021 Dental X-Ray: Full Mouth 04/08/2024 04/07/2021 SDOH Screening 02/24/2025 02/25/2024 Depression Screening 03/04/2025 03/04/2024, 03/04/2024 Tobacco Screening 05/30/2025 05/30/2024 Zoster Vaccines (1 of 2) 2026 Lipid Panel 05/27/2029 05/27/2024 RSV Patients and Patients Aged 60 years or older (1 - 1-dose 75+ series) 11/27/2051 Influenza Vaccine Completed 03/04/2024, 03/01/2023, 02/16/2022 HIV Screening Completed 05/27/2024, 12/27/2023 Hepatitis C Screening Completed 05/27/2024 HIB Vaccines Aged Out No longer eligi ble based on patient's age to complete this topic HPV Vaccines Aged Out No longer eligi ble based on patient's age to complete this topic Hepatitis A Vaccines Aged Out No long er eligible based on patient's age to complete this topic IPV Vaccines Aged Out No longer eligi ble based on patient's age to complete this topic Meningococcal Vaccine Aged Out No indio jaqueline eligible based on patient's age to complete this topic Pneumococcal Vaccine: Pediatrics (0 to 5 Years) and At-Risk Patients (6 to 49) Years) Aged Out No longer eligible b ased on patient's age to complete this topic RSV under 20 months Aged Out No longe r eligible based on patient's age to complete this topic Rotavirus Vaccines Aged Out No longer eligible based on patient's age to complete this topic Procedures Procedure Name Priority Date/Time Associated Diagnosis Comments TSH W/REFLEX TO FT4 Routine 05/27/2024 1 :40 PM EST Psychosis, unspecified psychosis type (CMS/HCC) VITAMIN D,25-OH,TOTAL,IA Routine 05/27/2024 1:40 PM EST Psychosis, unspecified psychosis type (CMS/HCC) LIPID PANEL, STANDARD Routine 05/27/2024 1:40 PM EST Psychosis, unspecified psychosis type (CMS/HCC) HEPATITIS C AB W/REFL TO HCV RNA, QN, PCR Routine 05/27/2024 1:40 PM EST Psychosis, unspecified psychosis type (CMS/HCC) HIV 1/2 ANTIGEN/ANTIBODY, FOURTH GENERATION W/RFL Routine 05/27/2024 1:40 PM EST Psychosis, unspecified psychosis type (CMS/HCC) HEMOGLOBIN A1C Routine 05/27/2024 1:40 PM EST Psychosis, unspecified psychosis type (CMS/HCC) COMPREHENSIVE METABOLIC PANEL Routine 05/27/2024 1:40 PM EST Psychosis, unspecified psychosis type (CMS/HCC) CBC WITH AUTO DIFFERENTIAL Routine 05/27/2024 1:40 PM EST Psychosis, unspecified psychosis type (CMS/HCC) PANORAMIC RADIOGRAPHIC IMAGE Routine 04/07/2021 12:00 AM EST COMPREHENSIVE ORAL EVALUATION - NEW OR ESTABLISHED PATIENT Routine 04/07/2021 12:00 AM EST from Last 3 Months or Most Recently Relevant to Health Maintenance Results * (ABNORMAL) Vitamin D, 25-Hydroxy, Total, Immunoassay (05/27/2024 1:40 PM EST) Vitamin D 25-OH Total 17.0(L) >30 ng/mL [facility] Comment:Health Based Referen ce Values*< 20 ng/mL [id number] ng/mL Insufficient> 30 ng/mL Sufficient*Bárbara HERNANDEZ. N Engl J Med. 2007;357:266-280Care must be taken in interpreting Vitamin D results fromdifferent laboratories and methodologies. Published datademonstrated that results from patients undergoinghemodialysis may show a negative bias when tested withvarious automated 25-OH vitamin D assays when compared toLC-MS/MS.When testing samples from patients whose predominant form ofVitamin D is Vitamin D2, such as patients receiving VitaminD2 supplementation, results that are subtherapeutic shouldbe confirmed with another method such as LC-MS/MS. Blood Venous blood specimen / Unknown 05/27/2024 1:40 PM EST 05/27/2024 4:00 PM EST us Veronica Manzo MD LAB BLOOD ORDERABLES Final Result [facility] [address] [place] [phone] * TSH with Reflex to Free T4 (05/27/2024 1:40 PM EST) TSH reflex Free T4 1.14 0.32 - 4.0 uIU/mL [facility] Blood Venous blood specimen / Unknown 05/27/2024 1:40 PM EST 05/27/2024 4:00 PM EST us Veronica Manzo MD LAB BLOOD ORDERABLES Final Result [facility] [address] [place] [address] [phone] * CBC auto differential (05/27/2024 1:40 PM EST) White Blood Count 7.3 4.8 - 10.8 X10*3/uL [facility] Red Blood Count 4.96 4.60 - 5.80 X10*6/uL [facility] Hemoglobin 15.4 14.0 - 18.0 g/dl [facility] Hematocrit 44.8 42.0 - 52.0 % [facility] Mean Corpuscular Volume 90.3 80.0 - 98.0 fL [facility] Mean Corpuscular Hemoglobin 31.0 27.0 - 33.0 pg [facility] Mean Corpuscular HGB Conc 34.4 31.0 - 36.0 g/dl [facility] Red Cell Distribution Width 13.2 11.0 - 16.0 % [facility] Platelet Count 206 160 - 400 X10*3/uL [facility] Mean Platelet Volume 10.5 9.4 - 12.4 fL [facility] Neutrophils Percent Auto 70.1 45 - 73 % [facility] Imm Gran Pct Auto 0.4 0.0 - 0.4 % [facility] Lymphocytes Percent Auto 21.8 20 - 40 % [facility] Monocytes Percent Auto 6.8 2 - 11 % [facility] Eosinophils Percent Auto 0.5 0 - 4 % [facility] Basophils Percent Auto 0.4 0 - 2 % [facility] NRBC Pct Auto 0.0 0.0 - 0.2 /100WBC [facility] Neutrophils Absolute Auto 5.1 2.0 - 8.3 x10*3/uL [facility] Imm Gran Abs Auto 0.03 0.00 - 0.03 X10*3/uL [facility] Lymphocytes Absolute Auto 1.6 1.2 - 4.9 X10*3/uL [facility] Monocytes Absolute Auto 0.5 0.1 - 1.2 X10*3/uL [facility] Eosinophils Absolute Auto 0.0 0.0 - 0.4 X10*3/uL [facility] Basophils Absolute Auto 0.0 0.0 - 0.2 X10*3/uL [facility] NRBC Abs Auto 0.000 0.0 - 0.012 X10*3/uL [facility] Blood Venous blood specimen / Unknown 05/27/2024 1:40 PM EST 05/27/2024 4:00 PM EST Veronica Manzo MD LAB BLOOD ORDERABLES Final Result Performing Organization Address [facility] Co de Phone Number [facility] [address] [place] [phone] * Hepatitis C Antibody with Reflex to HCV, RNA, Quantitative, Real-Time PCR (05/27/2024 1:40 PM EST) Hepatitis C Antibody Nonreactive Nonreactive [facility] Comment:Antibodies to HCV no t detected; does not exclude early acuteHCV infection. Blood Venous blood specimen / Unknown 05/27/2024 1:40 PM EST 05/27/2024 4:00 PM EST us Veronica Manzo MD LAB BLOOD ORDERABLES Final Result Performing Organization Address City/[facility] Co de Phone Number [facility] [address] [place] [phone] * HIV-1/2 Antigen and Antibodies, Fourth Generation, with Reflexes (05/27/2024 1:40 PM EST) HIV AB/AG Nonreactive Nonreactive [facility] Comment:HIV-1 p24 Ag and/or HIV-1/HIV-2 Ab not detected.A test result that is nonreactive does not exclude thepossibility of exposure to or infection with HIV-1 and/orHIV-2. Nonreactive results in this assay for individualswith prior exposure to HIV-1 and/or HIV-2 may be due toantigen and antibody levels that are below the limit ofdetection of this assay.The [employer] HIV Ag/Ab Combo assay result andsupplemental assay results should be interpreted inconjunction with the patient's clinical presentation,history and other laboratory results. If the results areinconsistent with clinical evidence, additional testing issuggested to confirm the result. Blood Venous blood specimen / Unknown 05/27/2024 1:40 PM EST 05/27/2024 4:00 PM EST us Veronica Manzo MD LAB BLOOD ORDERABLES Final Result Performing Organization Address [facility]/ZIP Co de Phone Number [facility] [address] [place] [phone] * Hemoglobin A1c (05/27/2024 1:40 PM EST) Hemoglobin A1c 5.3 <6.0 % [facility] Comment:Hemoglobin A1C Refer ence Range Adults: 4.8 - 6.0 % Non diabetic: < 6.0 % Goal: < 7.0 %Additional Action Suggested: > 8.0 %Note: Hemoglobin A1c results are invalid for patients with abnormal amounts of HbF. Blood transfusions may impact the HbA1c concentration in the patient sample. Estimated Average Glucose 105 mg/dL [facility] Comment:eAG = Estimated ave rage glucose which is %A1C expressed asaverage glucose, using the formula of the J5R-FuayltrEzlmjzx Glucose study (ADAG), Diabetes Care, Vol.31,#8,Dec. 2007 Blood Venous blood specimen / Unknown 05/27/2024 1:40 PM EST 05/27/2024 4:00 PM EST us Veronica Manzo MD LAB BLOOD ORDERABLES Final Result Performing Organization Address [facility]/ZIP Co de Phone Number [facility] [address] [place] [phone] * (ABNORMAL) Lipid Panel, Standard (05/27/2024 1:40 PM EST) Triglycerides 99 <150 mg/dL [facility] Comment:Desirable Triglyceri de: less than 150 mg/dLBorderline High Triglyceride 150-199 mg/dLHigh Triglyceride: 200-499 mg/dLVery High Triglyceride: greater than or equal to 5OO mg/dL Cholesterol 185 <200 mg/dL [facility] Comment:Desirable Cholestero l: less than 200 mg/dLBorderline High Cholesterol: 200-239 mg/dLHigh Cholesterol: greater than 239 mg/dL LDL Cholesterol Calculated 124(H) <100 mg/dL [facility] Comment:Desirable LDL: less than 100 mg/dLNear Optimal/Above Optimal LDL: 110- 129 mg/dLBorderline High LDL: 130-159 mg/dLHigh LDL: 160-189 mg/dLVery High LDL: greater than or equal to 190 mg/dL HDL Cholesterol 42 >40 mg/dL [facility] Comment:Desirable HDL: great er than 40 mg/dL Note: This HDL assay may give artificially low results in patients with liver disease. Blood Venous blood specimen / Unknown 05/27/2024 1:40 PM EST 05/27/2024 4:00 PM EST us Veronica Manzo MD LAB BLOOD ORDERABLES Final Result [facility] [address] [place] [phone] * (ABNORMAL) Comprehensive Metabolic Panel (05/27/2024 1:40 PM EST) Sodium 140 135 - 145 mmol/L [facility] Potassium 4.0 3.3 - 5.1 mmol/L [facility] Chloride 105 96 - 108 mmol/L [facility] Carbon Dioxide 27 22 - 29 mmol/L [facility] Anion Gap 12 12 - 20 [facility] Urea Nitrogen (BUN) 17(H) 9 - 16 mg/dL [facility] Creatinine, Serum 0.83 0.5 - 1.4 mg/dL [facility] Estimated Glomerular Filt Rate >60 [facility] Comment:Chronic Kidney Disea se: Estimated GFR < 60 mL/min/1.28a1Dlexps Kidney Disease: Estimated GFR < 15 mL/min/1.73m2 Glucose 121(H) 60 - 115 mg/dL [facility] Calcium 9.8 8.4 - 10.2 mg/dL [facility] Bilirubin, Total 0.5 0.0 - 1.0 mg/dL [facility] Aspartate Amino Transferase 27 5 - 37 U/L [facility] Alanine Aminotransferase 25 0 - 40 U/L [facility] Total Protein 8.1(H) 6.5 - 8.0 g/dL [facility] Albumin Level 4.3 3.5 - 5.0 g/dL [facility] Alkaline Phosphatase 88 39 - 117 U/L [facility] Blood Venous blood specimen / Unknown 05/27/2024 1:40 PM EST 05/27/2024 4:00 PM EST us Veroinca Manzo MD LAB BLOOD ORDERABLES Final Result [facility] [address] [place] [phone] from Last 3 Months Insurance [facility] Member Subscriber Plan / Payer (Ef fective 2022-Present) Name:Aamir Ho Relation to Subscriber:Self Name:Aamir Ho Payer ID:Not on file Group ID:Not on file Type:Medicaid Address: [facility] [id number] [place] [id number] [place] [address] MEDICARE DENTAL - [facility] Care Teams Classifier Relationship Specialty Start Date End Date Veronica Avendano MD [address] [place] [phone] PCP - General Family Medicine 02/16/22
--- OUTSIDE RECORDS SUMMARY | 2024-07-03 12:32 | XMS_ITS | Encounter Summary ---
Author Organization [employer] Address [address] [facility] [address] [place] [address] Care Team Providers Care [employer] Department Head Name Role Phone Veronica Avendano MD Primary Care Provide r Reason for Visit * Reason Onset Date Comments Hospital Follow-up 01/02/2024 Encounter Details Date Type Department Care Team ([facility] st Contact Info) Description 01/02/2024 Telephone [facility] MEDICINE [address] [place], [place] [phone] Veronica Avendano MD [address] [place], [place] [phone] Hospital Follow-up Social History Tobacco Use Types Packs/Day Years Used Date Smoking Tobacco: Never Passive Smoke Exposure: Never Smokeless Tobacco: Never Depression Answer Date Recorded Patient Health Questionnaire-9 Score 0 01/09/2023 Housing Stability Answer Date Recorded What is your housing situation today? I have mekaanais sears 03/26/[address] you [...] Date Recorded Patient Health Questionnaire-2 Score 0 01/09/2023 Sex and Gender Information Value Date Recorded Sex Assigned at Male 03/20/2022 10:39 AM EDT Legal Sex Male 10:39 AM EDT Gender Identity Choose not to disclose 10:39 AM EDT Sexual Orientation Choose not to disclose 2021 10:39 AM EDT documented as of this encounter Miscellaneous Notes * Telephone Encounter - [employer] Love - 01/02/2024 2:42 PM EDT Tc from pt requesting a HDF appt. Hospital: [facility] Date of admission: 12/27 Discharge date: 12/30 Diagnosed: Brief psychosis Please call [employer] System [employer]st at [phone] documented in this encounter Plan of Treatment Upcoming Encounters Date Type Department Care Team (Late st Contact Info) Description 07/31/2024 1:45 PM EDT Office Visit [facility] OPTOMETRY [address] [place] [address] TarAlka madrid, OD [address] [place] [address] documented as of this encounter Visit Diagnoses Not on filedocumented in this encounter Additional Health Concerns Assessment Noted Time PHQ-9 Depression Total Score: 0 01/10/20 23 10:51 AM EDT documented as of this encounter Care Teams [employer] Department Head Relationship Specialty Start Date End Date Veronica Avendano MD [address] [place] [phone] PCP - General Family Medicine 02/16/22 documented as of this encounter
--- OUTSIDE RECORDS SUMMARY | 2024-07-03 12:32 | XMS_ITS | Encounter Summary ---
Author Organization [employer] Address [address] [facility] [address] [place] [address] Care Team Providers Care Brooch And Bracelet Maker Name Role Phone Veronica Avendano MD Primary Care Provide r Encounter Details Date Type Department Care Team (Late st Contact Info) Description 12/18/2023 Telephone [facility] MEDICINE [address] [place], [place] [phone] Veronica Avendano MD [address] [place] [address] Social History Tobacco Use Types Packs/Day Years [...] AM EDT documented as of this encounter Plan of Treatment Upcoming Encounters Date Type Department Care Team (Late st Contact Info) Description 07/31/2024 1:45 PM EDT Office Visit [facility] OPTOMETRY [address] [place] [address] Tarka, Alka, OD [address] [place] [address] documented as of this encounter Visit Diagnoses Not on filedocumented in this encounter Additional Health Concerns Assessment Noted Time PHQ-9 Depression Total Score: 0 01/10/20 23 10:51 AM EDT documented as of this encounter Care Teams Brooch And Bracelet Maker Relationship Specialty Start Date End Date Veronica Avendano MD [address] [place] [id number] PCP - General Family Medicine 02/16/22 documented as of this encounter
--- OUTSIDE RECORDS SUMMARY | 2024-07-03 12:32 | XMS_ITS ---
Author Name Ruben [facility] MS. Anyi Mckenzie Address [address] [place] [address] Phone [phone] [facility] Care Team Providers Care Poultry Culler Name Role Phone Elisa Miranda Unavailable [phone] Unavailable Unavailable Unavailable Reason for Referral Not Available Allergies, adverse reactions, alerts No known allergies History of medication use Medication Class Instructions Start Date End Date Famotidine 20 mg Tab Take 1 tablet (20 m g) by mouth 2 times daily. 2023-04-04 No Data Available Problem List Problem Status Onset Date Resolved Date Intellectual disability Active 2023-04-04 N/A GERD (gastroesophageal reflux disease) Active 12-04-15 N/A Other problems related to [facility] facilities and other health care Active 2023-11-27 N/A Encounters Encounters Type Facility Date of Service Diagnosis/Co mplaint New patient, 30-44min 1 stable chronic or 2 minor; add modifier 95 for video, modifier 93 for [facility], ([place] 04[place]04/2023 Unspecified intellectual disabilitiesGastro-esophageal reflux disease without esophagitis New patient, 30-44min 1 stable chronic or 2 minor; add modifier 95 for video, modifier 93 for [facility], ([place] 04/04/2023 New patient, 30-44min 1 stable chronic or 2 minor; add modifier 95 for video, modifier 93 for [facility], [place] 04/04/2023 New patient, 30-44min 1 stable chronic or 2 minor; add modifier 95 for video, modifier 93 for [facility], [place] 04/04/2023 New patient, 30-44min 1 stable chronic or 2 minor; add modifier 95 for video, modifier 93 for [facility], [place] 04/04/2023 New patient, 30-44min 1 stable chronic or 2 minor; add modifier 95 for video, modifier 93 for [facility], [place] 04/04/2023 Estab. patient 30-39min; chronic exacerbation, 2 stable chronic or 1 acute illness add add modifier 95 for video, (do not use for phone, instead use [id number]) [facility] ([place]) 11/27/2023 Unspecified intellectual disabilitiesGastro-esophageal reflux disease without esophagitisOther problems related to medical facilities and other health care Estab. patient 30-39min; chronic exacerbation, 2 stable chronic or 1 acute illness add add modifier 95 for video, (do not use for phone, instead use 34473-17) [facility], ([place]) 11/27/2023 Estab. patient 30-39min; chronic exacerbation, 2 stable chronic or 1 acute illness add add modifier 95 for video, (do not use for phone, instead use 71861-53) [facility] ([place] 11/27/2023 Estab. patient 30-39min; chronic exacerbation, 2 stable chronic or 1 acute illness add add modifier 95 for video, (do not use for phone, instead use 93780-73) [facility], ([place] 11/27/2023 Estab. patient 30-39min; chronic exacerbation, 2 stable chronic or 1 acute illness add add modifier 95 for video, (do not use for phone, instead use 22504-02) [facility] ([place] 11/27/2023 Estab. patient 30-39min; chronic exacerbation, 2 stable chronic or 1 acute illness add add modifier 95 for video, (do not use for phone, instead use 73943-66) [facility] ([place] 11/27/2023 Estab. patient 30-39min; chronic exacerbation, 2 stable chronic or 1 acute illness add add modifier 95 for video, (do not use for phone, instead use 09271-11) [facility], ([place] 11/27/2023 Estab. patient 30-39min; chronic exacerbation, 2 stable chronic or 1 acute illness add add modifier 95 for video, (do not use for phone, instead use 85775-14) [facility], ([place]) 11/27/2023 Vital Signs Date of Collection Vitals 2023-04-04 13:58:54 Height - 172.72 cmWe ight - 68.04 kgBody Mass Index (BMI) - 22.81 kg/m2 2023-11-27 11:55:07 Weight - 68.04 kgBod y Mass Index (BMI) - 22.81 kg/m2 Social History Social History Social History Observation Description Effec tive Time Current Smoking Status Never smoker 2024-06-21 3 Sex Male History of Procedures Procedures Service Procedure code Service date Servicing provider Phone# New patient, 30-44min 1 stable chronic or 2 minor; add modifier 95 for video, modifier 93 for phone [id number] 2023-04-04 No Data Available No Data Available BMI obtained (3008F) 3008F 2023-04-04 No Data Availab le No Data Available Pain Assessment - NO pain present (1126F) 1126F 2023-04-04 No Data Available No Data A vailable Medication List Documented (1159F) 1159F 2023-04-04 No Data Available No Data Shahnaz ilable Medication Review by prescribing provider or pharmacist documented (1160F) 1160F 2023-04-04 No Data Available No Data Shahnaz ilable Functional Status Assessed (1170F) 1170F 2023-04-04 No Data Available No Data Avail able Estab. patient 30-39min; chronic exacerbation, 2 stable chronic or 1 acute illness add add modifier 95 for video, (do not use for phone, instead use [id number]) 30296 2023-11-27 No Data Available No Data Availa ble Medication List Documented (1159F) 1159F 2023-11-27 No Data Available No Data Shahnaz ilable Medication Review by prescribing provider or pharmacist documented (1160F) 1160F 2023-11-27 No Data Available No Data Shahnaz ilable Pain Assessment - NO pain present (1126F) 1126F 2023-11-27 No Data Available No Data A vailable BMI obtained (3008F) 3008F 2023-11-27 No Data Availab le No Data Available Advance Care Directive Advance care planning discussion documented in the medical record (1158F) 1158F 2023-11-27 No Data Available No Data Availa ble Advance care planning discussed and documented ? advance care plan or surrogate decision-maker was documented in the medical record. (1123F) 1123F 2023-11-27 No Data Available No Data Availa ble Functional Status Assessed (1170F) 1170F 2023-11-27 No Data Available No Data Avail able Functional Status Functional Category Effective Dates AIR DIRECTOR assists with cooking, cl eaning, laundry, showering and dressing. Pt denies using assistive device. 2023-04-04 Mental Status Status Date AOx2 (Self, Situation) 2023-04-04 Assessments Date of Service Assessments 2023-04-04 13:58:54 Intellectual disabil ityGERD (gastroesophageal reflux disease) 2023-11-27 11:55:07 Intellectual disabil ityGERD (gastroesophageal reflux disease)Other problems related to medical facilities and other health care Plan of Care Date of Service Plans 2023-04-04 13:58:54 BMI obtained (3008F) Televideo new patient, 30-44min 1 stable chronic or 2 minor; add modifier 95Advance care planning discussed and documented ? advance care plan or surrogate decision-maker was documented in the medical record. (1123F)Pain Assessment - NO pain documented (1126F)Advance care planning discussed and documented in the medical record ? beneficiary/patient did not wish to or was unable to provide an advance care plan or name a surrogate decision-maker. (1124F)Continue to see PCP. Follow-up with [facility] as needed for any acute or disease education needs that may arise 11/12.StableCG/Sister reports that she is legal guardian of patient. Patient requires assistance with completing ADL. Continue monitoring for safety and continue f/u care and monitoring with PCP.StableFamotidine 2023-11-27 11:55:07 Medication Review by prescribing provider or pharmacist documented (1160F)Medication List Documented (1159F)Functional Status Assessed (1170F)Advance Care Directive Advance care planning discussion documented in the medical record (1158F)BMI obtained (3008F)Televideo 30-39min; chronic exacerbation, 2 stable chronic or 1 acute illness add modifier 95Advance care planning discussed and documented ? advance care plan or surrogate decision-maker was documented in the medical record. (1123F)Pain Assessment - NO pain documented (1126F)Continue to see PCP. Follow-up with Lou as needed for any acute or disease education needs that may arise.StableCG/Sister reports that she is legal guardian of patient. Patient requires assistance with completing ADL. Continue monitoring for safety and continue f/u care and monitoring with PCP.StableFamotidineWhen member to call: 1. If bp is elevated sbp>150; dbp>90 or symptomatic-h/a, dizziness, cp, sob. 2. if there is a fall 3. if BS >300 or BS<90 or symptomatic; i.e., dizzy, off balance , shaky, general weakness. 4. if UTI symptoms arise-urinary frequency, dysuria, low abd pain. Please remember to call CBContinue to see PCP. [facility]up with [facility] as needed for any acute or disease education needs that may arise 11/12. Goals Date Goal 2023-04-04 Remember to contact EMS if developing emergent symptoms. 2023-04-04 Contact us if develo ping GI s/sx, safety, concerns, or any clinical concerns. 2023-04-04 Continue taking medi cations as prescribed and f/u care and monitoring with PCP every 3-6 months. Health Concerns Date Concern 2023-11-27 Visit completed michaela montague audio and video. Patient/Guardian agreed to visit via telehealth. Today, patient has chief complaint of: follow up care and comprehensive review.Reviewed Allergies, Medications, Active Medical conditions, past medical/surgical history, Social history. 2023-11-27 Most recent hospital stay(s) or ER visit(s) and precipitating factors: Denies 2023-11-27 Open HEDIS Measure tori corrigan: Reviewed 2023-11-27 Advance Care Plan Co nversationDate of Conversation: 11/27/2023Life Limiting Diagnosis: Diagnosis:Currently on Hospice NoCode Status: YES CPR: Attempt ResuscitationGoals of Care: Curative: Attempt to sustain life by all medically effective meansNutrition goals: No decision made about nutrition today; not discussedDo you have a Durable Power of Workforce Development Assistant for Healthcare, or Healthcare Proxy Or Guardianship? Yes, guardianIf so, Who? Sister Katarina is HCPDo you have a written Advance Directive? Has Advance DirectiveOther details of discussion: Sister/guardian expressed her desire to continue to seek medical interventions to prolong lifeToday's plan:1123F : AD or surrogate was documented in the medical record.
== END 2024-07-03 12:19 | disposition home or self-care (01) ==
LOC: HO.HHCL 12:18
PROVIDERS: Visit Provider Registered Nurse
DX: Z13.89 Encounter for screening for other disorder (principal)